=== PATIENT | female | born 1985 | race Caucasian/White ===

== ENCOUNTER 2018-10-30 19:20 | Emergency (ER) | payer OTHER ==
[~2018-10-30] VITALS: Ht 160 cm; Wt 72.6 kg
[2018-10-30] MEDS ORDERED: LACTATED RINGERS 1,000 ML IV ONE ×2 (19:33→20:41)
[2018-10-30 19:45] LABS: BASOPHILS # (AUTO) 0.1 10^3/uL (0.0-0.1); BASOPHILS % (AUTO) 0 % (0-10); EOSINOPHILS # (AUTO) 0.1 10^3/uL (0.0-0.3); EOSINOPHILS % (AUTO) 0 % (0-10); HEMATOCRIT 39 % (35-52); HEMOGLOBIN 13.3 G/DL (11.5-16.0); LYMPHOCYTES # (AUTO) 0.8 X 10^3 (1.0-4.0); LYMPHOCYTES % (AUTO) 4 % (12-44); MEAN CORPUSCULAR HEMOGLOBIN 31 PG (25-34); MEAN CORPUSCULAR HGB CONC 34 G/DL (32-36); MEAN CORPUSCULAR VOLUME 91 FL (80-99); MEAN PLATELET VOLUME 9.6 FL (7.4-10.4); MONOCYTES # (AUTO) 0.8 X 10^3 (0.0-1.0); MONOCYTES % (AUTO) 4 % (0-12); NEUTROPHILS % (AUTO) 92 % (42-75); PLATELET COUNT 392 10^3/uL (130-400); RED CELL DISTRIBUTION WIDTH 12.4 % (10.0-14.5); WHITE BLOOD COUNT 20.7 10^3/uL (4.3-11.0)
--- NOTE | 2018-10-30 19:53 | ED Cardiac General ---
History of Present Illness General Chief Complaint: Cardiac/General Problems Stated Complaint: ELEVATED HEART RATE Nursing Triage Note: was taking a nap prior to arrival when her smart watch woke her up and alerted her that her pulse had been tachy for more than 10 minutes Source: patient, family (NATASHA LYNCH) History of Present Illness Date Seen by Provider: Oct 30, 2018 Time Seen by Provider: 19:30 Initial Comments Pt presents with a rapid heart rate notified by her smart watch while she was sleeping today about 5 hours ago (at 1500). She states she had some shortness of breath at that time along with lightheadness and a fever as well. She states she had a cough this morning and was a little achy which she assumed was from riding horses yesterday. She has a history of asthma attacks and used her albuterol inhaler during the shortness of air she experienced. She states her fever was 100.7 at around 1830 and she took some tylenol to help with the fever and aches. She has a history of nasal polyps and chronic sinusitis that has been present recently. Timing/Duration: 4-6 hours Severity: moderate Location: other (High heart rate as detected by her smart watch) Activities at Onset: rest (Her watch woke her from sleeping) Prior CP/Workup: no prior chest pain, no prior cardiac workup (NATASHA LYNCH) Initial Comments Here with complaint of fast heart rate fever as well as body aches. Heart rate persists. This is not normal for her. Recently has had sinus issues. Also noted body aches today. Timing/Duration: 4-6 hours NTG SL PACS ADMINISTRATOR: No ASA po PACS ADMINISTRATOR: No Associated Systoms: Cough, Fever/Chills; No Nausea/Vomiting; Shortness of Air; No Weakness (ERASTO CARNEY MD) Allergies and Home Medications Allergies Coded Allergies: No Known Drug Allergies (Verified , 10/30/18) Patient Home Medication List Home Medication List Reviewed: Yes (ERASTO CARNEY MD) Review of Systems Review of Systems Constitutional: diaphoresis, fever EENTM: No Ear Pain; Nose Congestion Respiratory: Cough, Shortness of Air Cardiovascular: Lightheadedness, Palpitations Gastrointestinal: Denies Abdominal Pain, Denies Constipated, Denies Diarrhea, Denies Nausea, Denies Vomiting Genitourinary: No Symptoms Reported Musculoskeletal: neck pain, other (Chest tightness earlier but has since subsided) Skin: no symptoms reported Psychiatric/Neurological: Denies Numbness, Denies Tingling; Weakness Endocrine: No Symptoms Reported Hematologic/Lymphatic: No Symptoms Reported (NATASHA LYNCH) Constitutional: see HPI EENTM: Nose Congestion; No Throat Pain Respiratory: Cough, Shortness of Air, Wheezing Cardiovascular: Lightheadedness, Palpitations Genitourinary: No Symptoms Reported Musculoskeletal: joint pain, muscle pain (ERASTO CARNEY MD) All Other Systems Reviewed Negative Unless Noted: Yes (ERASTO CARNEY MD) Past Fxjuvpn-Tryvno-Quarlm Hx Past Med/Social Hx: Reviewed Nursing Past Med/Soc Hx (ERASTO CARNEY MD) Patient Social History Alcohol Use: Denies Use Recreational Drug Use: No Recent Foreign Travel: No Contact w/Someone Who Travel: No Recent Infectious Disease Expo: No (NATASHA LYNCH) Family Medical History Reviewed Nursing Family Hx (ERASTO CARNEY MD) No Pertinent Family Hx (ERASTO CARNEY MD) Physical Exam Vital Signs Vital Signs - First Documented 10/30/18 19:33 Temp 99.6 Pulse 138 Resp 18 B/P (MAP) 119/85 (96) (ERASTO CARNEY MD) Vital Signs Capillary Refill : Less Than 3 Seconds (NATASHA LYNCH) Height, Weight, BMI Height: 5'3.00" Weight: 160lbs. oz. 72.514765gb; BMI Method:Stated General Appearance: WD/WN, Mild Distress Neck: Full Range of Motion, Normal Inspection, Non Tender, Supple Respiratory: Chest Non Tender, Lungs Clear, Normal Breath Sounds, No Accessory Muscle Use, No Respiratory Distress Cardiovascular: No Edema, No JVD, Normal Peripheral Pulses, Tachycardia Gastrointestinal: Normal Bowel Sounds, Non Tender Extremity: No Calf Tenderness, No Pedal Edema Neurologic/Psychiatric: Alert, Oriented x3, No Motor/Sensory Deficits, Normal Mood/Affect Skin: Damp, Diaphoresis, Other (Warm) (NATASHA LYNCH) General Appearance: WD/WN, Mild Distress HEENT: PERRL/EOMI, TMs Normal, Pharynx Normal Neck: Full Range of Motion, Normal Inspection, Non Tender, Supple Respiratory: Lungs Clear, Normal Breath Sounds Cardiovascular: No Edema, Normal Peripheral Pulses, Tachycardia Gastrointestinal: Normal Bowel Sounds, No Pulsatile Mass, Non Tender, Soft Extremity: Normal Capillary Refill, Normal Inspection, Normal Range of Motion, Non Tender Neurologic/Psychiatric: Alert, Oriented x3, No Motor/Sensory Deficits Skin: Normal Color, Diaphoresis (ERASTO CARNEY MD) Progress/Results/Core Measures Results/Orders Lab Results Laboratory Tests Test 10/30/18 19:33 10/30/18 20:10 Range/Units White Blood Count 20.7 H 4.3-11.0 10^3/uL Red Blood Count 4.26 L 4.35-5.85 10^6/uL Hemoglobin 13.3 11.5-16.0 G/DL Hematocrit 39 35-52 % Mean Corpuscular Volume 91 80-99 FL Mean Corpuscular Hemoglobin 31 25-34 PG Mean Corpuscular Hemoglobin Concent 34 32-36 G/DL Red Cell Distribution Width 12.4 10.0-14.5 % Platelet Count 392 130-400 10^3/uL Mean Platelet Volume 9.6 7.4-10.4 FL Neutrophils (%) (Auto) 92 H 42-75 % Lymphocytes (%) (Auto) 4 L 12-44 % Monocytes (%) (Auto) 4 0-12 % Eosinophils (%) (Auto) 0 0-10 % Basophils (%) (Auto) 0 0-10 % Neutrophils # (Auto) 19.0 H 1.8-7.8 X 10^3 Lymphocytes # (Auto) 0.8 L 1.0-4.0 X 10^3 Monocytes # (Auto) 0.8 0.0-1.0 X 10^3 Eosinophils # (Auto) 0.1 0.0-0.3 10^3/uL Basophils # (Auto) 0.1 0.0-0.1 10^3/uL Neutrophils % (Manual) 96 % Lymphocytes % (Manual) 2 % Monocytes % (Manual) 2 % Eosinophils % (Manual) 0 % Basophils % (Manual) 0 % Band Neutrophils 0 % Blood Morphology Comment NORMAL Prothrombin Time 13.7 12.2-14.7 SEC INR Comment 1.0 0.8-1.4 Activated Partial Thromboplast Time 30 24-35 SEC D-Dimer 0.72 H 0.00-0.49 UG/ML Sodium Level 138 135-145 MMOL/L Potassium Level 3.7 3.6-5.0 MMOL/L Chloride Level 105 98-107 MMOL/L Carbon Dioxide Level 20 L 21-32 MMOL/L Anion Gap 13 5-14 MMOL/L Blood Urea Nitrogen 8 7-18 MG/DL Creatinine 0.87 0.60-1.30 MG/DL Estimat Glomerular Filtration Rate > 60 BUN/Creatinine Ratio 9 Glucose Level 127 H 70-105 MG/DL Calcium Level 9.1 8.5-10.1 MG/DL Corrected Calcium 8.9 8.5-10.1 MG/DL Magnesium Level 1.6 1.6-2.4 MG/DL Total Bilirubin 0.7 0.1-1.0 MG/DL Aspartate Amino Transf (AST/SGOT) 17 5-34 U/L Alanine Aminotransferase (ALT/SGPT) 15 0-55 U/L Alkaline Phosphatase 122 40-136 U/L Myoglobin 46.3 10.0-92.0 NG/ML Troponin I < 0.028 <0.028 NG/ML B-Type Natriuretic Peptide 17.3 <100.0 PG/ML Total Protein 7.6 6.4-8.2 GM/DL Albumin 4.3 3.2-4.5 GM/DL TSH [place] Testing 0.53 0.35-4.94 UIU/ML Serum Test, Qualitative NEGATIVE NEGATIVE Urine Color YELLOW Urine Clarity CLEAR Urine pH 8 5-9 Urine Specific [place] 1.010 L 1.016-1.022 Urine Protein NEGATIVE NEGATIVE Urine Glucose (UA) NEGATIVE NEGATIVE Urine Ketones NEGATIVE NEGATIVE Urine Nitrite NEGATIVE NEGATIVE Urine Bilirubin NEGATIVE NEGATIVE Urine Urobilinogen NORMAL NORMAL MG/DL Urine Leukocyte Esterase NEGATIVE NEGATIVE Urine RBC (Auto) 1+ H NEGATIVE Urine RBC 0-2 /HPF Urine WBC NONE /HPF Urine Squamous Epithelial Cells 0-2 /HPF Urine Crystals NONE /LPF Urine Bacteria NONE /HPF Urine Casts NONE /LPF Urine Mucus NEGATIVE /LPF Urine Culture Indicated NO Urine Opiates Screen NEGATIVE NEGATIVE Urine Oxycodone Screen NEGATIVE NEGATIVE Urine Methadone Screen NEGATIVE NEGATIVE Urine Propoxyphene Screen NEGATIVE NEGATIVE Urine Barbiturates Screen NEGATIVE NEGATIVE Ur Tricyclic Antidepressants Screen NEGATIVE NEGATIVE Urine Phencyclidine Screen NEGATIVE NEGATIVE Urine Amphetamines Screen NEGATIVE NEGATIVE Urine Methamphetamines Screen NEGATIVE NEGATIVE Urine Benzodiazepines Screen NEGATIVE NEGATIVE Urine Cocaine Screen NEGATIVE NEGATIVE Urine Cannabinoids Screen NEGATIVE NEGATIVE ([place],ERASTO D MD) Micro Results Microbiology 10/30/18 Influenza Types A,B Antigen (JCARLOS) - Final, Complete (ERASTO CARNEY MD) My Orders Orders - ERASTO CARNEY MD Ed Iv/Invasive Line Start (10/30/18 19:33) Lactated Ringers (Lr 1000 Ml Iv Solution (10/30/18 19:33) Cbc With Automated Diff (10/30/18:33) Magnesium (10/30/18:33) Chest 1 View, Ap/Pa Only (10/30/18:33) Ekg Tracing (10/30/18:33) Cardiac Profile 1 (10/30/18:33) Comprehensive Metabolic Panel (10/30/18:33) Myoglobin Serum (10/30/18 19:33) Protime With Inr (10/30/18:33) Partial Thromboplastin Time (10/30/18:33) O2 (10/30/18:33) Monitor-Rhythm Ecg Trace Only (10/30/18:33) Lipid Panel (10/31/18 06:00) Ed Iv/Invasive Line Start (10/30/18 19:33) BNP (10/30/18:33) Fibrin Degradation Products (10/30/18:33) Drug Screen Stat (Urine) (10/30/18 19:33) Hcg,Qualitative Serum (10/30/18 19:33) Thyroid Analyzer (10/30/18 19:33) Ua Culture If Indicated (10/30/18:33) Influenza A And B Antigens (10/30/18 19:45) Manual Differential (10/30/18 19:33) Ed Iv/Invasive Line Start (10/30/18 20:41) Lactated Ringers (Lr 1000 Ml Iv Solution (10/30/18 20:41) Ct Head/Sinuses Wo (10/30/18 20:38) Ceftriaxone For Iv Use (Rocephin For I (10/30/18 21:15) Dexamethasone Injection (Decadron Inject (10/30/18 21:15) (ERASTO CARNEY MD) Medications Given in ED Current Medications Medications Dose Ordered Sig/Sukhdeep Route Start Time Stop Time Status Last Admin Dose Admin Lactated Ringer's 1,000 ml @ 0 mls/hr Q0M ONCE IV 10/30/18 19:33 10/30/18 19:36 DC 10/30/18 19:47 1,000 MLS/HR Lactated Ringer's 1,000 ml @ 0 mls/hr Q0M ONCE IV 10/30/18 20:41 10/30/18 20:42 DC 10/30/18 21:12 1,000 MLS/HR (ERASTO CARNEY MD) Vital Signs/I&O 10/30/18 19:33 Temp 99.6 Pulse 138 Resp 18 B/P (MAP) 119/85 (96) (ERASTO CARNEY MD) Blood Pressure Mean: 96 Progress Progress Note : Time: 19:30 Progress Note Pt seen by me. The patient presents with a rapid heart rate 150bpm when I entered the room. She also reports a cough and aches that started this morning as well. I discussed the patient with Dr. Carney and he ordered an EKG, CBC, CMP, TSH, CXR, Nasal swab for influenza, Tropinins, D-dimer, BNP, and 1L of LR. (NATASHA LYNCH) Progress Note : Progress Note Seen and evaluated the patient and agree with above except as indicated. I have directed the plan of care. IV, labs, EKG, chest x-ray, influenza screen and LR 1 L bolus ordered. Monitor patient. 2044: Repeat LR 1 L bolus. Heart rate down to 110s now. The WBC count is significantly elevated but no source has been identified. Given patient's history of chronic sinusitis, this may be the source. We will go ahead and get CT of the head to evaluate the sinuses to determine source while pending further fluid resuscitation. Patient is feeling a little better now. Monitor patient. 2110: We will go ahead and give Rocephin 1 g IV as well as Decadron 10 mg IV for the rather significant sinusitis noted in the setting of elevated white count with left shift. Heart rate is improving after second liter of fluid was initiated. She states that she is normally 90s to 100's and obturator 113 is not totally abnormal for her. We will initiate outpatient antibiotic therapy and I did discuss with her about follow-up with ENT. (ERASTO CARNEY MD) Initial ECG Impression Date: Oct 30, 2018 Initial ECG Impression Time: 19:31 Initial ECG Rate: 135 Initial ECG Rhythm: S.Tach Initial ECG Comparisson: No Previous ECG Available Comment Sinus tachycardia with normal axis. Q waves in the anterior lateral region. Minimal ST depression and ST flattening in the inferior leads which may be rate dependent. (ERASTO CARNEY MD) Diagnostic Imaging Diagonstic Imaging: Xray Plain Films/CT/US/NM/MRI: chest Comments [facility] [place] [id number] PT STATUS: REG ER : 1985 PHYSICIAN: ERASTO CARNEY MD ADMIT DATE: 10/30/18/ER Draft Date of Exam:10/30/18 CHEST 1 VIEW, AP/PA ONLY EXAM: Chest 1 view, AP/PA only. INDICATION: Shortness of air. Chest tightness. COMPARISON: None. FINDINGS: Normal heart size and pulmonary vascularity. No dense consolidation, pleural effusion or pneumothorax. No acute osseous findings. IMPRESSION: Negative chest. Dictated on workstation # [id number] Dict: 10/30/182014 Trans: 10/30/18 2016 [facility] [id number] Interpreted by: KRISSY DELUCA MD Electronically signed by: Reviewed: Reviewed by Me Diagonstic Imaging: CT Plain Films/CT/US/NM/MRI: other [facility] [place] [place] [facility] [id number] PT STATUS: REG ER : 1985 PHYSICIAN: ERASTO CARNEY MD ADMIT DATE: 10/30/18/ER Draft Date of Exam:10/30/18 CT HEAD/SINUSES WO PROCEDURE: CT head without contrast and CT sinuses with contrast. TECHNIQUE: Routine noncontrast CT images were obtained through the head and sinuses. Coronal reformats of the sinuses were also performed and reviewed. Auto Exposure Controls were utilized during the CT exam to meet ALARA standards for radiation dose reduction. INDICATION: Sinusitis. COMPARISON: None. FINDINGS: No intracranial hemorrhage, mass effect, hydrocephalus or extra-axial fluid collection. No CT evidence for territorial infarction. No fracture. Postoperative findings of bilateral maxillary antrostomies, middle turbinectomies and ethmoidectomies. There is complete opacification of the ethmoid and sphenoid sinuses. Marked mucosal thickening in the maxillary sinuses. The frontal sinuses are aplastic. The mastoids are clear. IMPRESSION: 1. Complete opacification of the (ethmoid) and sphenoid sinuses with marked mucosal thickening in the maxillary sinuses. 2. Postoperative findings bilateral maxillary antrostomies, middle turbinectomies and ethmoidectomies. 3. No acute intracranial CT findings. Dictated on workstation # [id number] Dict: 10/30/182109 Trans: 10/30/182113 [facility] [id number] Interpreted by: KRISSY DELUCA MD Electronically signed by: Reviewed: Reviewed by Me (ERASTO CARNEY MD) Departure Impression Primary Impression: Acute sinusitis Qualified Codes: J01.21 - Acute recurrent ethmoidal sinusitis Disposition: HOME, SELF-CARE Condition: Stable Departure-Patient Inst. Decision time for Depature: 21:29 (ERASTO CARNEY MD) Referrals: NO,LOCAL PHYSICIAN (PCP/Family) Primary Care Physician Patient Instructions: Sinusitis, Adult (DC) Add. Discharge Instructions: All discharge instructions reviewed with patient and/or family. Voiced understanding. Drink plenty of fluids. Follow-up with your doctor within one week for recheck and further evaluation. You should consider ENT evaluation as well due to the chronic problems with her sinuses. Take medications as directed. You may take Tylenol/acetaminophen 1000 mg every 8 hours as needed for fever or pain. You may take ibuprofen 600 mg every 8 hours as needed for fever or pain as well. Return for worse pain, fever, vomiting, weakness, breathing problems or other concerns as needed. Scripts Prednisone (Prednisone) 20 Mg Tab 40 MG PO DAILY, #10 TAB 0 Refills Prov: ERASTO CARNEY MD 10/30/18 Cefdinir (Cefdinir) 300 Mg Capsule 300 MG PO BID, #20 CAP 0 Refills Prov: ERASTO CARNEY MD 10/30/18 NATASHA LYNCH [facility] Oct 30, 2018 19:53 ERASTO CARNEY MD Oct 30, 2018 20:16
[2018-10-30 20:00] LABS: ALANINE AMINOTRANSFERASE 15 U/L (0-55); ALBUMIN 4.3 GM/DL (3.2-4.5); ALKALINE PHOSPHATASE 122 U/L (40-136); BILIRUBIN,TOTAL 0.7 MG/DL (0.1-1.0); BUN/CREATININE RATIO 9; CALCIUM 9.1 MG/DL (8.5-10.1); CARBON DIOXIDE 20 MMOL/L (21-32); CHLORIDE 105 MMOL/L (98-107); CREATININE SERUM 0.87 MG/DL (0.60-1.30); GFR ESTIMATED > 60; GLUCOSE 127 MG/DL (70-105); MAGNESIUM 1.6 MG/DL (1.6-2.4); POTASSIUM 3.7 MMOL/L (3.6-5.0); SODIUM 138 MMOL/L (135-145); TOTAL PROTEIN 7.6 GM/DL (6.4-8.2)
[2018-10-30 20:01] LABS: PROTHROMBIN TIME PATIENT 13.7 SEC (12.2-14.7)
[2018-10-30 20:04] LABS: BAND NEUTROPHILS 0 %; BASOPHILS % (MANUAL) 0 %; EOSINOPHILS % (MANUAL) 0 %; LYMPHOCYTES % (MANUAL) 2 %; MONOCYTES % (MANUAL) 2 %; NEUTROPHILS % (MANUAL) 96 %
[2018-10-30 20:05] LABS: RBC MORPH NORMAL
--- NOTE | 2018-10-30 20:11 | NUR ---
pt self ambulated to restroom, urine sample obtained and sent to lab
--- NOTE | 2018-10-30 20:17 | Diagnostic Imaging Report ---
EXAM: Chest 1 view, AP/PA only. INDICATION: Shortness of air. Chest tightness. COMPARISON: None. FINDINGS: Normal heart size and pulmonary vascularity. No dense consolidation, pleural effusion or pneumothorax. No acute osseous findings. IMPRESSION: Negative chest. Dictated by: Dictated on workstation # [id number]
[2018-10-30 20:18] LABS: BILIRUBIN,URINE NEGATIVE (NEGATIVE); CLARITY,URINE CLEAR; COLOR,URINE YELLOW; GLUCOSE, URINE (UA) NEGATIVE (NEGATIVE); KETONES,URINE NEGATIVE (NEGATIVE); LEUKOCYTE ESTERASE ,URINE NEGATIVE (NEGATIVE); NITRITE,URINE NEGATIVE (NEGATIVE); PH,URINE 8 (5-9); PROTEIN,URINE NEGATIVE (NEGATIVE); UROBILINOGEN,URINE NORMAL (NORMAL)
[2018-10-30 20:25] LABS: RBC,URINE 0-2 /HPF; SQUAMOUS EPITHELIAL CELL,UR 0-2 /HPF
[2018-10-30 20:27] LABS: AMPHETAMINE SCREEN, URINE NEGATIVE (NEGATIVE); BARBITURATE SCREEN URINE NEGATIVE (NEGATIVE); BENZODIAZEPINES SCREEN URINE NEGATIVE (NEGATIVE); CANNABINOID SCREEN, URINE NEGATIVE (NEGATIVE); COCAINE SCREEN URINE NEGATIVE (NEGATIVE); METHADONE STAT NEGATIVE (NEGATIVE); METHAMPHETAMINE SCREEN URINE S NEGATIVE (NEGATIVE); OPIATE SCREEN URINE NEGATIVE (NEGATIVE); OXYCODONE STAT NEGATIVE (NEGATIVE); PROPOXYPHENE STAT NEGATIVE (NEGATIVE); TRICYCLIC ANTIDEPRESSANTS SCRE NEGATIVE (NEGATIVE)
--- NOTE | 2018-10-30 20:39 | NUR ---
pt denies any needs or c/o at this time, pt shows no s/s of distress at this time, pt states she is starting to feel better, vs assessed and stable, will continue to monitor
[2018-10-30] MEDS ORDERED: DEXAMETHASONE 10 MG/ML (DECADRON) 1 ML VIAL IV ONE (21:15)
[2018-10-30] MEDS ORDERED: cefTRIAXone FOR IV USE 1,000 MG in WATER (STERILE) FOR INJECTION 10 ML IV ONE (21:15)
--- NOTE | 2018-10-30 21:15 | Diagnostic Imaging Report ---
PROCEDURE: CT head without contrast and CT sinuses with contrast. TECHNIQUE: Routine noncontrast CT images were obtained through the head and sinuses. Coronal reformats of the sinuses were also performed and reviewed. Auto Exposure Controls were utilized during the CT exam to meet ALARA standards for radiation dose reduction. INDICATION: Sinusitis. COMPARISON: None. FINDINGS: No intracranial hemorrhage, mass effect, hydrocephalus or extra-axial fluid collection. No CT evidence for territorial infarction. No fracture. Postoperative findings of bilateral maxillary antrostomies, middle turbinectomies and ethmoidectomies. There is complete opacification of the ethmoid and sphenoid sinuses. Marked mucosal thickening in the maxillary sinuses. The frontal sinuses are aplastic. The mastoids are clear. IMPRESSION: 1. Complete opacification of the mastoid and sphenoid sinuses with marked mucosal thickening in the maxillary sinuses. 2. Postoperative findings bilateral maxillary antrostomies, middle turbinectomies and ethmoidectomies. 3. No acute intracranial CT findings. Dictated by: Dictated on workstation # [id number]
[2018-10-30] MEDS ORDERED: PRD20T PO (21:32)
[2018-10-30] MEDS ORDERED: CEFD300C3 PO (21:32)
[2018-10-30 22:27] VITALS: BP 112/70
== END 2018-10-30 22:27 | disposition home or self-care (01) ==
LOC: EDUNIT# 19:20 → ER 19:21
DX: J01.90 Acute sinusitis, unspecified (principal); J45.901 Unspecified asthma with (acute) exacerbation
CPT/HCPCS: 36415; 70450; 70486; 71045; 80053; 80306; 81000; 83735; 83874; 83880; 84443; 84484; 84703; 85007; 85027; 85379; 85610; 85730; 87804; 93005; 93041

== ENCOUNTER 2020-05-23 05:28 | Outpatient (RCR) | payer OTHER ==
[~2020-05-23] VITALS: Ht 162.6 cm; Wt 77.2 kg
[~2020-05-23 05:28] MED LIST: BUDE10.22 IH; CEFD300C3 PO; CETI10CA PO; PRD20T PO; RT-ALBUINH INH
== END 2020-05-23 09:23 | disposition home or self-care (01) ==
LOC: PREOP 05:28
PROVIDERS: ATTEND Otolaryngology Otolaryngology/Facial Plastic Surgery
DX: Z01.812 Encounter for preprocedural laboratory examination (principal); J32.9 Chronic sinusitis, unspecified; J34.3 Hypertrophy of nasal turbinates; Z20.822 Contact with and (suspected) exposure to COVID-19
CPT/HCPCS: 87635

== ENCOUNTER 2020-05-25 06:44 | Day surgery (SDC) | payer OTHER ==
[~2020-05-25] VITALS: Ht 162.6 cm; Wt 77.2 kg
[2020-05-25] VITALS (11 sets, daily range): BP systolic 109–128; BP diastolic 56–94
--- NOTE | 2020-05-25 06:58 | Progress Note-Pre Operative ---
Pre-Operative Progress Note H&P Reviewed The H&P was reviewed, patient examined and no changes noted. Date Seen by Provider: May 25, 2020 Time Seen by Provider: 07:00 Date H&P Reviewed: May 25, 2020 Time H&P Reviewed: 07:00 Pre-Operative Diagnosis: Bialteral Chornic/REcurrent Sinusitis with Polyps VALE NI MD May 25, 2020 06:58
[2020-05-25] MEDS ORDERED: COCAINE HCL 4% 2 ML SYR ONE (07:04)
[2020-05-25] MEDS ORDERED: PHENYLEPHRINE 0.5% NASAL SPR (NEO-SYNEPHRINE) REG ONE (07:04)
[2020-05-25] MEDS ORDERED: BSS 15 ML ONE (07:04)
[2020-05-25] MEDS: LACTATED RINGERS 1,000 ML IV PRN ×2 (07:13→11:06)
[2020-05-25] MEDS ORDERED: AMPICILLIN/SULBACTAM INJECTION 1.5 GM in NS (IVPB) 100 ML IV ONE (07:15)
[2020-05-25] MEDS ORDERED: HYDROCORTISONE 100 MG/2 ML (Solu-CORTEF) VIAL IV ONE (07:15)
[2020-05-25 07:23] LABS: BASOPHILS # (AUTO) 0.1 10^3/uL (0.0-0.1); BASOPHILS % (AUTO) 1 % (0-10); EOSINOPHILS # (AUTO) 0.3 10^3/uL (0.0-0.3); EOSINOPHILS % (AUTO) 2 % (0-10); HEMATOCRIT 39 % (35-52); HEMOGLOBIN 13.5 g/dL (11.5-16.0); LYMPHOCYTES # (AUTO) 5.6 10^3/uL (1.0-4.0); LYMPHOCYTES % (AUTO) 30 % (12-44); MEAN CORPUSCULAR HEMOGLOBIN 32 pg (25-34); MEAN CORPUSCULAR HGB CONC 35 g/dL (32-36); MEAN CORPUSCULAR VOLUME 92 fL (80-99); MEAN PLATELET VOLUME 9.3 fL (9.0-12.2); MONOCYTES % (AUTO) 5 % (0-12); NEUTROPHILS # (AUTO) 11.8 10^3/uL (1.8-7.8); NEUTROPHILS % (AUTO) 63 % (42-75); PLATELET COUNT 457 10^3/uL (130-400); WHITE BLOOD COUNT 18.9 10^3/uL (4.3-11.0)
[2020-05-25 07:37] LABS: BUN/CREATININE RATIO 16; CALCIUM 8.7 MG/DL (8.5-10.1); CARBON DIOXIDE 18 MMOL/L (21-32); CHLORIDE 108 MMOL/L (98-107); GFR ESTIMATED > 60; GLUCOSE 89 MG/DL (70-105); POTASSIUM 3.4 MMOL/L (3.6-5.0); SODIUM 140 MMOL/L (135-145)
[2020-05-25 07:49] LABS: BASOPHILS % (MANUAL) 1 %; LYMPHOCYTES % (MANUAL) 34 %; MONOCYTES % (MANUAL) 5 %; NEUTROPHILS % (MANUAL) 60 %; RBC MORPH NORMAL
[2020-05-25] MEDS ORDERED: LIDOCAINE PF 2% 5 ML (XYLOCAINE) VIAL ONE (07:50)
[2020-05-25] MEDS ORDERED: fentaNYL INJ 100 MCG/2 ML AMP ONE (07:50)
[2020-05-25] MEDS ORDERED: proPOfol 200 MG/20 ML (DIPRIVAN) VIAL IV ONE (07:50)
[2020-05-25] MEDS ORDERED: ONDANSETRON 4 MG/2 ML (SDV) Z0FRAN ONE (07:50)
[2020-05-25] MEDS ORDERED: MIDAZOLAM 2 MG/2 ML (VERSED) VIAL ONE (07:50)
[2020-05-25] MEDS ORDERED: ROCURONIUM 10 MG/ML 5 ML SYRINGE IV ONE (07:50)
[2020-05-25] MEDS ORDERED: SEVOFLURANE (ULTANE) 15 ML INHAL SOLN ONE ×4 (07:50→08:56)
[2020-05-25] MEDS ORDERED: NEOSTIGMINE 3 MG/3 ML VIAL ONE (07:50)
[2020-05-25] MEDS ORDERED: GLYCOPYRROLATE 0.2 MG/ML (ROBINUL) 2 ML VIAL ONE (07:50)
[2020-05-25] MEDS ORDERED: LIDOCAINE/EPI 1%-1:100,000 (XYLOCAINE) 20ML INJ ONE (09:00)
--- NOTE | 2020-05-25 09:11 | Progress Note-Post Operative ---
Post-Operative Progess Note Surgeon (s)/[employer] At [employer] (s) Surgeon VALE NI MD [employer] n/a Pre-Operative Diagnosis Bialteral Chornic/REcurrent Sinusitis with Polyps Post-Operative Diagnosis same Post-Op Procedure Note Date of Procedure: May 25, 2020 Name of Procedure Performed: Bilaeral Revision ESS, Bilat Red of Inf Turbs Description & Findings Description and Findings: n/a Anesthesia Type get Estimated Blood Loss minimal Packing none. Specimen(s) collected/removed bilat chroinc sinus disease VALE NI MD May 25, 2020 09:11
[2020-05-25] MEDS ORDERED: HYDROcodone/APAP 5 MG/325 MG (LORTAB) TAB PO PRN (09:15)
[2020-05-25] MEDS ORDERED: D5 1/2 NS W/KCL 20 MEQ/L 1,000 ML IV SCH (09:15)
[2020-05-25] MEDS ORDERED: ACETAMINOPHEN 325 MG TABLET PO PRN (09:15)
[2020-05-25] MEDS ORDERED: PROMETHAZINE INJ 25 MG/ML (PHENERGAN) AMP IVP PRN (09:15)
[2020-05-25] MEDS ORDERED: predniSONE 20 MG TAB PO ONE (09:15)
[2020-05-25] MEDS ORDERED: HYDROmorphone 2 MG/ML VIAL (DILAUDID) IV ONE (09:30)
[2020-05-25] MEDS ORDERED: MEPERIDINE (DEMEROL) INJ 50 MG/ML IVP ONE (09:30)
[2020-05-25] MEDS ORDERED: PROMETHAZINE INJ 25 MG/ML (PHENERGAN) AMP IVP ONE (09:30)
[2020-05-25] MEDS ORDERED: ONDANSETRON 4 MG/2 ML (SDV) Z0FRAN IVP PRN (09:30)
[2020-05-25] MEDS ORDERED: morphine INJ 10 MG/ML 1ML (SYR OR VIAL) IVP ONE (09:30)
[2020-05-25] MEDS ORDERED: ACHD5005 PO (09:56)
[2020-05-25] MEDS ORDERED: AMOX-355 PO (09:56)
[2020-05-25] MEDS ORDERED: PRD20T PO (09:59)
--- NOTE | 2020-05-25 12:10 | Anesthesia-General Post-Op ---
General Patient Condition Mental Status/LOC: Same as Preop Cardiovascular: Satisfactory Nausea/Vomiting: Absent Respiratory: Satisfactory Pain: Controlled Complications: Absent Post Op Complications Complications None Follow Up Care/Instructions Patient Instructions None needed. Anesthesia/Patient Condition Patient Condition Patient is doing well, no complaints, stable vital signs, no apparent adverse anesthesia problems. No complications reported per nursing. JOVANNA WOODS CRNA May 25, 2020 12:10
== END 2020-05-25 11:40 | disposition home or self-care (01) ==
LOC: SDC 06:44
PROVIDERS: ATTEND Otolaryngology Otolaryngology/Facial Plastic Surgery
DX: J32.9 Chronic sinusitis, unspecified (principal); J34.3 Hypertrophy of nasal turbinates; R09.81 Nasal congestion; J33.9 Nasal polyp, unspecified; J45.909 Unspecified asthma, uncomplicated; K21.9 Gastro-esophageal reflux disease without esophagitis; Z79.899 Other long term (current) drug therapy
CPT/HCPCS: 36415; 80048; 84703; 85007; 85027; 87081; 88305